=== PATIENT | male | born 1940 | race Caucasian/White ===

== ENCOUNTER 2022-01-02 20:35 | Inpatient (IN) | payer MEDICARE, BC ==
[~2022-01-02] VITALS: Ht 172.7 cm; Wt 97.5 kg
[2022-01-02 21:41] LABS: HEMOGLOBIN 12.5 gm/dl (14.0-17.5); RED BLOOD COUNT 4.31 M/UL (4.20-5.50); WHITE BLOOD COUNT 4.9 K/UL (4.5-11.0)
[2022-01-02 22:14] LABS: BUN/CREATININE RATIO 15 (0-10)
[2022-01-03 05:24] LABS: HEMOGLOBIN 11.1 gm/dl (14.0-17.5)
[2022-01-03 05:25] LABS: RED BLOOD COUNT 3.84 M/UL (4.20-5.50); WHITE BLOOD COUNT 3.3 K/UL (4.5-11.0)
[2022-01-03 05:52] LABS: BUN/CREATININE RATIO 17 (0-10)
[2022-01-03] MEDS ORDERED: GLIPIZIDE10 MG PO (11:06)
[2022-01-03] MEDS ORDERED: PROCHLORPERAZINE5 MG PO (11:06)
[2022-01-03] MEDS ORDERED: METOPROLOL SUCC25 MG PO (11:07)
[2022-01-03] MEDS ORDERED: BENZONATATE100 MG PO (11:07)
[2022-01-03] MEDS ORDERED: AMLODIPINE BES2.5 MG PO (11:07)
[2022-01-03] MEDS ORDERED: FLOMAX 0.4 MG0.4 MG PO (11:08)
[2022-01-03] MEDS ORDERED: HYDROCODON-ACE1 EAC4 PO (11:08)
[2022-01-03] MEDS ORDERED: LISINOPRIL20 MG PO (11:08)
[2022-01-03] MEDS ORDERED: ALLOPURINOL100 MG PO (11:09)
[2022-01-04 03:48] LABS: HEMOGLOBIN 10.9 gm/dl (14.0-17.5); RED BLOOD COUNT 3.75 M/UL (4.20-5.50)
[2022-01-04 03:55] LABS: WHITE BLOOD COUNT 4.9 K/UL (4.5-11.0)
[2022-01-04 04:08] LABS: BUN/CREATININE RATIO 21 (0-10)
[2022-01-05 03:21] LABS: HEMOGLOBIN 10.6 gm/dl (14.0-17.5); RED BLOOD COUNT 3.65 M/UL (4.20-5.50)
[2022-01-05 03:25] LABS: WHITE BLOOD COUNT 3.5 K/UL (4.5-11.0)
[2022-01-05 03:36] LABS: BUN/CREATININE RATIO 20 (0-10)
[2022-01-06 04:10] LABS: HEMOGLOBIN 10.8 gm/dl (14.0-17.5); RED BLOOD COUNT 3.76 M/UL (4.20-5.50); WHITE BLOOD COUNT 3.4 K/UL (4.5-11.0)
[2022-01-06 04:27] LABS: BUN/CREATININE RATIO 23 (0-10)
[2022-01-06] MEDS ORDERED: DECADRON6 MG PO (11:38)
[2022-01-07 07:43] LABS: BUN/CREATININE RATIO 25 (0-10)
[2022-01-07 08:12] LABS: WHITE BLOOD COUNT 4.5 K/UL (4.5-11.0)
[2022-01-07 08:13] LABS: HEMOGLOBIN 10.9 gm/dl (14.0-17.5); RED BLOOD COUNT 3.76 M/UL (4.20-5.50)
[2022-01-08 00:34] LABS: HEMOGLOBIN 10.9 gm/dl (14.0-17.5); RED BLOOD COUNT 3.73 M/UL (4.20-5.50); WHITE BLOOD COUNT 5.2 K/UL (4.5-11.0)
[2022-01-08 03:12] LABS: HEMOGLOBIN 11.4 gm/dl (14.0-17.5); RED BLOOD COUNT 3.83 M/UL (4.20-5.50); WHITE BLOOD COUNT 5.2 K/UL (4.5-11.0)
[2022-01-08 03:35] LABS: BUN/CREATININE RATIO 29 (0-10)
[2022-01-08] MEDS ORDERED: ELIQUIS 5 MG TAB5 MG PO (11:12)
== END 2022-01-08 14:43 | disposition home health service (06) | DRG 177 ==
LOC: ER1 20:35 → MED SURG 4 01-03 02:39 → CDU 01-03 02:39 → MED SURG 4 01-03 03:56
PROVIDERS: Emergency Medicine; Internal Medicine; Nurse Practitioner; ADMIT Internal Medicine
PROC: 8E0ZXY6 Isolation (ICD-10-PCS; principal; 2022-01-03)
PROC: XW033E5 Introduction of Remdesivir Anti-infective into Peripheral Vein, Percutaneous Approach, New Technology Group 5 (ICD-10-PCS; 2022-01-03)
PROC: 3E0333Z Introduction of Anti-inflammatory into Peripheral Vein, Percutaneous Approach (ICD-10-PCS; 2022-01-03)
PROC: B24BZZZ Ultrasonography of Heart with Aorta (ICD-10-PCS; 2022-01-08)
DX: U07.1 COVID-19 (principal); J12.82 Pneumonia due to coronavirus disease 2019; J96.01 Acute respiratory failure with hypoxia; E11.9 Type 2 diabetes mellitus without complications; F03.90 Unspecified dementia, unspecified severity, without behavioral disturbance, psychotic disturbance, mood disturbance, and anxiety; E78.5 Hyperlipidemia, unspecified; F11.90 Opioid use, unspecified, uncomplicated; G89.29 Other chronic pain; I48.91 Unspecified atrial fibrillation; N40.0 Benign prostatic hyperplasia without lower urinary tract symptoms; I25.10 Atherosclerotic heart disease of native coronary artery without angina pectoris; I11.0 Hypertensive heart disease with heart failure; M10.9 Gout, unspecified; K59.00 Constipation, unspecified; E66.9 Obesity, unspecified; Z88.6 Allergy status to analgesic agent; Z86.16 Personal history of COVID-19; Z79.01 Long term (current) use of anticoagulants; Z79.899 Other long term (current) drug therapy; Z95.5 Presence of coronary angioplasty implant and graft; Z95.0 Presence of cardiac pacemaker; Z83.3 Family history of diabetes mellitus; Z82.49 Family history of ischemic heart disease and other diseases of the circulatory system; Z68.32 Body mass index [BMI] 32.0-32.9, adult
CPT/HCPCS: ECHO; 36415; 36600; 71045; 80048; 80053; 81001; 82550; 82553; 82728; 82803; 82962; 83605; 83615; 83690; 83735; 83880; 84484; 85025; 85027; 85379; 85610; 85730; 86140; 87040; 93005; 93306; 94640; 94760; 96372; 96374; 96375; 97110; 97161; 97165; 97530; 99285; C9113; J0248; J0456; J0500; J0696; J1100; J1170; J1644; J1650; J2405; J2550; J7030; Q9967